=== PATIENT | male | born 2000 | race African-American/Black ===

== ENCOUNTER 2022-11-03 17:20 | Emergency (ER) | payer MEDICAID ==
[~2022-11-03] VITALS: Ht 175.3 cm; Wt 48.5 kg
[2022-11-03] MEDS ORDERED: CLOT113C TP (18:37)
[2022-11-03 18:43] VITALS: BP 128/63
== END 2022-11-03 18:44 | disposition home or self-care (01) ==
LOC: ER 17:34
DX: K13.0 Diseases of lips (principal)
CPT/HCPCS: 99282